=== PATIENT | male | born 1985 | race Caucasian/White ===

== ENCOUNTER 2017-08-23 14:51 | Emergency (ER) | payer OTHER ==
[2017-08-23 15:09] VITALS: BP 122/84; PULSE 105; TEMP 98.4; BMI 29.5
[2017-08-23] MEDS ORDERED: KETOROLAC TROMETHAMINE 60 MG/2 ML VIAL IM ONE (15:12)
--- NOTE | 2017-08-23 15:12 | PDOC ---
Rapid Medical Evaluation Chief Complaint: Back Pain Time Seen by Provider: 08/23/17 15:09 Medical Evaluation: Allergies Allergy/AdvReac Type Severity Reaction Status Date / Time propentofylline Allergy Unverified 08/23/17 15:05 [Propentofylline] venom-honey bee Allergy Unverified 08/23/17 15:05 [bee venom (honey bee)] Vital Signs Temp Pulse Resp BP Pulse Ox 98.4 F 105 H 18 122/84 100 08/23/17 15:06 08/23/17 15:06 08/23/17 15:06 08/23/17 15:06 08/23/17 15:06 08/23/17 15:11 The patient presents with a chief complaint of: [Lower back pain, history of herniated disc.] I have performed a brief in-person evaluation of this patient. Pertinent physical exam findings: vss, [Lower back pain, no point tenderness, no radiating pain] I have ordered the following: [Toradol 60 mg IM x 1] The patient will proceed to the ED for further evaluation.
[2017-08-23] MEDS ORDERED: CYCLOBENZAPRINE HCL 10 MG TABLET (FP) PO ONE (16:01)
[2017-08-23] MEDS ORDERED: CYCLOBENZAPRINE HCL 10 MG TABLET (FP) ONE (16:03)
[2017-08-23] MEDS ORDERED: KETOROLAC TROMETHAMINE 60 MG/2 ML VIAL ONE (16:03)
--- NOTE | 2017-08-23 16:06 | PDOC ---
History of Present Illness - General Chief Complaint: Back Pain Stated Complaint: LOWER BACK PAIN Time Seen by Provider: 08/23/17 15:09 History Source: Patient - History of Present Illness Occurred: reports: other Severity: reports: moderate Pain Location: reports: back Past History - Past Medical History Allergies/Adverse Reactions: Allergies Allergy/AdvReac Type Severity Reaction Status Date / Time propentofylline Allergy Unverified 08/23/17 15:05 [Propentofylline] venom-honey bee Allergy Unverified 08/23/17 15:05 [bee venom (honey bee)] Home Medications: Ambulatory Orders Cyclobenzaprine HCl [Flexeril 10 mg] 10 mg PO TID PRN #9 tablet 08/23/17 Ibuprofen [Motrin -] 600 mg PO QID #28 tablet 08/23/17 COPD: No Other medical history: back problems - Suicide/Smoking/Psychosocial Hx Smoking History: Current every day smoker Have you smoked in the past 12 months: Yes Number of Cigarettes Smoked Daily: 10 Information on smoking cessation initiated: Yes 'Breaking Loose' booklet given: 08/23/17 Hx Alcohol Use: No Drug/Substance Use Hx: No Substance Use Type: None Review of Systems - Review of Systems Constitutional: No: Chills, Fever ABD/GI: No: Nausea, Vomiting, Abdominal cramping Musculoskeletal: Yes: Back Pain. No: Muscle Weakness Neurological: No: Numbness, Tingling, Weakness *Physical Exam - Vital Signs Last Vital Signs Temp Pulse Resp BP Pulse Ox 98.4 F 105 H 18 122/84 100 08/23/17 15:06 08/23/17 15:06 08/23/17 15:06 08/23/17 15:06 08/23/17 15:06 - Physical Exam General Appearance: Yes: Appropriately Dressed. No: Apparent Distress HEENT: positive: Normal Voice Neck: positive: Supple Respiratory/Chest: negative: Respiratory Distress Gastrointestinal/Abdominal: positive: Soft. negative: Tender Musculoskeletal: negative: CVA Tenderness, Vertebral Tenderness Extremity: positive: Normal Inspection Integumentary: positive: Dry, Warm Neurologic: positive: Fully Oriented, Alert, Normal Mood/Affect, Motor Strength 5/5 Medical Decision Making - Medical Decision Making 08/23/17 16:02 31-year-old male, endorses history of herniated discs to lumbar spine with chronic lower back pain has been lost to follow-up for 2 years as per patient, here with worsening back pain 3 days. Pain located to mid lower back, sharp, non-radiating and worse with certain movements. No lower extremity weakness, bladder or bowel incontinence or saddle anesthesia. Taking Advil with no relief. Patient well-appearing and stable in ED and able to ambulate with no red flags, i.e Cauda Equina. Pain Control in ED. Anticipate Discharge with Spine Referral 08/23/17 16:05 *DC/Admit/Observation/Transfer Diagnosis at time of Disposition: Chronic back pain Qualifiers: Back pain location: low back pain Back pain laterality: unspecified Sciatica presence: without sciatica Qualified Code(s): M54.5 - Low back pain; G89.29 - Other chronic pain; G89.29 - Other chronic pain - Discharge Dispostion Disposition: HOME Condition at time of disposition: Good - Prescriptions Prescriptions: Cyclobenzaprine HCl [Flexeril 10 mg] 10 mg PO TID PRN #9 tablet PRN Reason: Back Pain Ibuprofen [Motrin -] 600 mg PO QID #28 tablet - Referrals Referrals: Henry Wolfe MD [Staff Physician] - - Patient Instructions Printed Discharge Instructions: Low Back Pain Additional Instructions: Take medications as prescribed and follow-up with Dr. Wolfe of neurology - Post Discharge Activity
== END 2017-08-23 16:34 | disposition home or self-care (01) ==
LOC: JERFT 14:51
PROC: 3E0233Z Introduction of Anti-inflammatory into Muscle, Percutaneous Approach (ICD-10-PCS; principal; 2017-08-23)
DX: M54.5 Low back pain (principal); G89.29 Other chronic pain; M51.26 Other intervertebral disc displacement, lumbar region
CPT/HCPCS: 96372; 99281-25

== ENCOUNTER 2017-12-15 12:34 | Emergency (ER) | payer OTHER ==
[2017-12-15 12:40] VITALS: BP 118/89; PULSE 89; TEMP 98.4; BMI 30.2
[2017-12-15] MEDS ORDERED: KETOROLAC TROMETHAMINE 60 MG/2 ML VIAL IM ONE (13:51)
[2017-12-15] MEDS ORDERED: KETOROLAC TROMETHAMINE 60 MG/2 ML VIAL ONE (13:55)
--- NOTE | 2017-12-15 13:58 | PDOC ---
History of Present Illness - General Chief Complaint: Back Pain Stated Complaint: BACK PAIN Time Seen by Provider: 12/15/17 12:59 - History of Present Illness Initial Comments: 32-year-old male with history of lower back pain and multiple herniations presents for exacerbation of lower back pain with right leg radiculopathy's pain is described as sharp exacerbated with motion relieved with rest with radiation down the posterior lateral aspect of the right leg to the level of the foot. He denies loss of bowel or bladder function. He did nothing for his pain so far. He is under the care of pain management and receives facet injections 12/15/17 13:52 Past History - Past Medical History Allergies/Adverse Reactions: Allergies Allergy/AdvReac Type Severity Reaction Status Date / Time propentofylline Allergy Unverified 12/15/17 12:35 [Propentofylline] venom-honey bee Allergy Unverified 12/15/17 12:35 [bee venom (honey bee)] Home Medications: Ambulatory Orders Cyclobenzaprine HCl [Flexeril 10 mg] 10 mg PO HS PRN #10 tablet 12/15/17 Methylprednisolone [Medrol Dose Juan] 4 mg PO ASDIR #21 tablet 12/15/17 COPD: No - Suicide/Smoking/Psychosocial Hx Smoking History: Current every day smoker Have you smoked in the past 12 months: Yes Number of Cigarettes Smoked Daily: 10 Information on smoking cessation initiated: No 'Breaking Loose' booklet given: 08/23/17 Hx Alcohol Use: No Drug/Substance Use Hx: No Substance Use Type: None Review of Systems - Review of Systems Musculoskeletal: Yes: Back Pain All Other Systems: Reviewed and Negative *Physical Exam - Vital Signs Last Vital Signs Temp Pulse Resp BP Pulse Ox 98.4 F 89 18 118/89 98 12/15/17 12:36 12/15/17 12:36 12/15/17 12:36 12/15/17 12:36 12/15/17 12:36 - Physical Exam Comments: Lumbar spine skin color and temperature are normal. There is decreased range of motion lumbar spine mild paralumbar musculature spasm 5 out of 5 strength in bilateral lower extremities. Patella and Achilles reflexes are 2+ and symmetric bilaterally. There is no clonus. Straight leg raise test is negative bilaterally. Thighs and calves are soft and nontender. There are no gross sensory motor deficits. Neurovascularly intact. 12/15/17 13:54 *DC/Admit/Observation/Transfer Diagnosis at time of Disposition: Chronic back pain - Discharge Dispostion Disposition: HOME Condition at time of disposition: Stable Decision to Admit order: No - Prescriptions Prescriptions: Cyclobenzaprine HCl [Flexeril 10 mg] 10 mg PO HS PRN #10 tablet PRN Reason: Muscle Spasms Methylprednisolone [Medrol Dose Juan] 4 mg PO ASDIR #21 tablet - Referrals Referrals: Rupal Young [Primary Care Provider] - - Patient Instructions Printed Discharge Instructions: Low Back Pain, DI for Low Back Pain Additional Instructions: Follow-up with orthopedic surgeon as we discussed in the next week return to the emergency room if symptoms worsen or go unresolved part of follow-up. I prescribed few steroid pack and a muscle relaxer do not take any other medicine besides Tylenol for the pain. - Post Discharge Activity
== END 2017-12-15 14:15 | disposition home or self-care (01) ==
LOC: JERFT 12:34
PROC: 3E0233Z Introduction of Anti-inflammatory into Muscle, Percutaneous Approach (ICD-10-PCS; principal; 2017-12-15)
DX: G89.29 Other chronic pain (principal)
CPT/HCPCS: 99281-25

== ENCOUNTER 2018-08-23 18:24 | Emergency (ER) | payer BC, OTHER ==
[2018-08-23 18:40] VITALS: BP 126/80; PULSE 90; TEMP 98.6; BMI 29.5
--- NOTE | 2018-08-23 19:55 | PDOC ---
History of Present Illness - General Chief Complaint: Back Pain Stated Complaint: LOW BACK PAIN Time Seen by Provider: 08/23/18 19:36 - History of Present Illness Initial Comments: 08/23/18 19:51 32-year-old male presents for evaluation of a painful area on his lumbosacral spine no fevers chills or night sweats Past History - Past Medical History Allergies/Adverse Reactions: Allergies Allergy/AdvReac Type Severity Reaction Status Date / Time propentofylline Allergy Verified 08/23/18 18:36 [Propentofylline] venom-honey bee Allergy Verified 08/23/18 18:36 [bee venom (honey bee)] Home Medications: Ambulatory Orders Bupropion HCl [Wellbutrin -] 100 mg PO BID 08/23/18 Cephalexin [Keflex] 500 mg PO QID #40 capsule 08/23/18 Clonazepam 1 mg PO ASDIR 08/23/18 Sulfamethoxazole/Trimethoprim [Bactrim Ds -] 1 tab PO BID #14 tablet 08/23/18 COPD: No - Suicide/Smoking/Psychosocial Hx Smoking History: Current every day smoker Have you smoked in the past 12 months: Yes Number of Cigarettes Smoked Daily: 10 Information on smoking cessation initiated: No 'Breaking Loose' booklet given: 08/23/17 Hx Alcohol Use: No Drug/Substance Use Hx: No Substance Use Type: None Review of Systems - Review of Systems Integumentary: Yes: Lesions, Lumps *Physical Exam - Vital Signs Last Vital Signs Temp Pulse Resp BP Pulse Ox 98.6 F 90 16 126/80 100 08/23/18 18:36 08/23/18 18:36 08/23/18 18:36 08/23/18 18:36 08/23/18 18:36 - Physical Exam Comments: 08/23/18 19:51 There is about a 1 cm circumferential area of induration erythema and warmth without fluctuance at the base of the lumbar spine skin Moderate Sedation - Procedure Monitoring Vital Signs: Procedure Monitoring Vital Signs Temperature 98.6 F 08/23/18 18:36 Pulse Rate 90 08/23/18 18:36 Respiratory Rate 16 08/23/18 18:36 Blood Pressure 126/80 08/23/18 18:36 O2 Sat by Pulse Oximetry (%) 100 08/23/18 18:36 Medical Decision Making - Medical Decision Making 08/23/18 19:52 This patient has a history of multiple pilonidal cyst I&D's. This particular one is not fluctuant and is not ready to be drained. I've advised the patient on warm compresses placed him on Bactrim and Keflex and will have her follow-up with general surgery. The area is scarred from prior I&D's this may need to be done formally in the operating room. *DC/Admit/Observation/Transfer Diagnosis at time of Disposition: History of pilonidal cyst - Discharge Dispostion Disposition: HOME Condition at time of disposition: Stable Decision to Admit order: No - Referrals Referrals: Angelica Sanchez MD [Primary Care Provider] - Lavon Breen MD [Staff Physician] - - Patient Instructions Printed Discharge Instructions: Pilonidal Cyst Additional Instructions: Return to the emergency room should symptoms worsen or go unresolved. Please follow-up with general surgery in 2-3 days for further evaluation and treatment options. Warm compresses multiple times a day will help with the cyst. Please take the antibiotics as directed. Tylenol and Motrin as directed for pain. - Post Discharge Activity
== END 2018-08-23 20:06 | disposition home or self-care (01) ==
LOC: JERFT 18:24
DX: L05.91 Pilonidal cyst without abscess (principal)
CPT/HCPCS: 99281-25

== ENCOUNTER 2019-09-18 16:52 | Emergency (ER) | payer BC ==
[2019-09-18] MEDS ORDERED: CYCLOBENZAPRINE HCL 10 MG TABLET (FP) PO ONE (17:16)
[2019-09-18] MEDS ORDERED: CYCLOBENZAPRINE HCL 10 MG TABLET (FP) ONE (17:21)
[2019-09-18 17:22] VITALS: BP 150/86; PULSE 90; TEMP 97.6; BMI 27.4
--- NOTE | 2019-09-18 17:40 | PDOC ---
Documentation entered by Kenia Goldberg SCRIBE, acting as scribe for Aime Batista MD. Aime Batista MD: This documentation has been prepared by the Ashlyn nelson Xhesika, SCRIBE, under my direction and personally reviewed by me in its entirety. I confirm that the documentation accurately reflects all work, treatment, procedures, and medical decision making performed by me. History of Present Illness - General Chief Complaint: Pain, Acute Stated Complaint: LOW BACK PAIN Time Seen by Provider: 09/18/19 16:54 History Source: Patient Exam Limitations: No Limitations - History of Present Illness Initial Comments: 09/18/19 17:24 The patient is a 33 year old male with a significant PMH of chronic lower back pain and multiple herniations who presents to the emergency department for his chronic back pain worsening the past couple of days. The patient states he has been controlling his chronic back pain with his own methods but the past 2 days the pain has been severe and the patient has not been able to sleep. Girlfriend at bedside states the patient has been having spasm shooting down his leg, and last night the patient lost his footing and sensation in his leg. Pt denies any weakness. Pt denies any recent injuries or trauma. Pt states he saw his PMD today, who prescribed him medication (naproxen) which he took 2hrs prior to his arrival. 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 The patient denies chest pain, shortness of breath, headache and dizziness. Denies fever, chills, cough, vomiting, diarrhea and constipation. Denies dysuria , frequency, urgency and hematuria. Allergies: NKDA Past History - Past Medical History Allergies/Adverse Reactions: Allergies Allergy/AdvReac Type Severity Reaction Status Date / Time propentofylline Allergy Verified 09/18/19 16:54 [Propentofylline] propofol Allergy Verified 09/18/19 16:54 venom-honey bee Allergy Verified 09/18/19 16:54 [bee venom (honey bee)] Home Medications: Ambulatory Orders Buprenorphine/Naloxone [Suboxone 8Mg/2Mg Sl Film -] 1 each SL DAILY 09/18/19 Cyclobenzaprine HCl [Flexeril 10 mg] 10 mg PO BID PRN #20 tablet 09/18/19 Naproxen [Naprosyn] 500 mg PO DAILY 09/18/19 traZODone HCL [Trazodone HCl] 50 mg PO ASDIR 09/18/19 COPD: No - Psycho Social/Smoking Cessation Hx Smoking History: Current every day smoker Have you smoked in the past 12 months: Yes Number of Cigarettes Smoked Daily: 10 Information on smoking cessation initiated: Yes 'Breaking Loose' booklet given: 08/23/17 Hx Alcohol Use: No Drug/Substance Use Hx: No Substance Use Type: None Review of Systems - Review of Systems Able to Perform ROS?: Yes Comments:: 09/18/19 17:24 GENERAL/CONSTITUTIONAL: No fever or chills. No weakness. HEAD, EYES, EARS, NOSE AND THROAT: No change in vision. No ear pain or discharge. No sore throat. CARDIOVASCULAR: No chest pain or shortness of breath. RESPIRATORY: No cough, wheezing, or hemoptysis. GASTROINTESTINAL: No nausea, vomiting, diarrhea or constipation. GENITOURINARY: No dysuria, frequency, or change in urination. MUSCULOSKELETAL: No joint or muscle swelling or pain. No neck pain. +lower back pain. SKIN: No rash NEUROLOGIC: No headache, vertigo, loss of consciousness, or change in strength/ sensation. ENDOCRINE: No increased thirst. No abnormal weight change. HEMATOLOGIC/LYMPHATIC: No anemia, easy bleeding, or history of blood clots. ALLERGIC/IMMUNOLOGIC: No hives or skin allergy. *Physical Exam - Vital Signs Last Vital Signs Temp Pulse Resp BP Pulse Ox 97.6 F 90 19 150/86 100 09/18/19 16:53 09/18/19 16:53 09/18/19 16:53 09/18/19 16:53 09/18/19 16:53 - Physical Exam 09/18/19 17:18 GENERAL: The patient is awake, alert, and fully oriented, Nontoxic - in no acute distress. HEAD: Normocephalic, atraumatic. NECK: Normal range of motion, supple ABDOMEN: Soft, nontender, No guarding, no rebound. No CVA tenderness BACK: No significant midline tenderness, mild tenderness to the Superior aspect of the right buttock, No significant erythema, induration, fluctuance appreciated EXTREMITIES: Normal range of motion, no edema. Dorsiflexion/ plantarflexion of bilateral ankles are symmetric, sensation intact On lower extremities bilaterally, antalgic gait Medical Decision Making - Medical Decision Making 09/18/19 17:20 33-year-old history of chronic back pain secondary to herniated disks presenting with to be exacerbation of his back pain associated with tingling sensation running down his right leg Without associated fever, chills, recent trauma or injury, focal weakness, Decrease sensation, urinary or bowel incontinence, saddle anesthesia. The patient had seen his primary care doctor earlier today had received a prescription with for an MRI as well as trazodone and Aleve which he took prior to arrival. He states he is not interested in taking trazodone We will give the patient Flexeril will also recommend that the patient follow- up with his orthopedic surgeon for further evaluation. There are no signs or symptoms suggestive of cord compression or paraspinal epidural abscess. Precautions were discussed I discussed the physical exam findings, ancillary test results and final diagnoses with the patient. I answered all of the patient's questions. The patient was satisfied with the care received and felt comfortable with the discharge plan and treatment plan. The patient will call their primary care physician within 24 hours to arrange follow-up and will return to the Emergency Department with any new, persistent or worsening symptoms. Discharge - Discharge Information Problems reviewed: Yes Clinical Impression/Diagnosis: Sciatica Qualifiers: Laterality: right Qualified Code(s): M54.31 - Sciatica, right side Condition: Improved Disposition: HOME - Admission No - Additional Discharge Information Prescriptions: Cyclobenzaprine HCl [Flexeril 10 mg] 10 mg PO BID PRN #20 tablet PRN Reason: Back Pain - Follow up/Referral Referrals: Regis Roy MD [Staff Physician] - - Patient Discharge Instructions Patient Printed Discharge Instructions: DI for Back Pain With Sciatica Additional Instructions: Return to the emergency department immediately with ANY new, persistent or worsening symptoms including numbness, tingling, weakness, fevers or any other concerns. Take medications as prescribed Do not take the Flexeril with the trazodone. Apply heat to your sore muscles. You MUST call and follow up with your doctor tomorrow for further evaluation of your symptoms. Your emergency department visit is not complete without a followup with your doctor for reevaluation.. Results were discussed with you. Please make sure your doctor reviews the results of your emergency evaluation. Print Language: SAMOAN - Post Discharge Activity Work/Back to School Note: Back to Work
== END 2019-09-18 17:42 | disposition home or self-care (01) ==
LOC: FER 16:52
DX: M54.31 Sciatica, right side (principal); Z88.8 Allergy status to other drugs, medicaments and biological substances; Z91.030 Bee allergy status; G89.29 Other chronic pain; M51.9 Unspecified thoracic, thoracolumbar and lumbosacral intervertebral disc disorder
CPT/HCPCS: 99283-25

== ENCOUNTER 2020-03-05 14:07 | Emergency (ER) | payer BC, OTHER ==
--- NOTE | 2020-03-05 14:21 | PDOC ---
Rapid Medical Evaluation Time Seen by Provider: 03/05/20 14:20 Medical Evaluation: Allergies Allergy/AdvReac Type Severity Reaction Status Date / Time propentofylline Allergy Verified 03/05/20 14:20 [Propentofylline] propofol Allergy Verified 03/05/20 14:20 venom-honey bee Allergy Verified 03/05/20 14:20 [bee venom (honey bee)] 03/05/20 14:21 I have performed a brief in-person evaluation of this patient. The patient presents with a chief complaint of: c/o ankle/knee pain s/p fall last week at work. H/o chronic back pain, opiate abuse Pertinent physical exam findings:NAD I have ordered the following:nothing The patient will proceed to the ED for further evaluation. Discharge Disposition - Diagnosis Ankle pain Qualifiers: Chronicity: acute Laterality: left Qualified Code(s): M25.572 - Pain in left ankle and joints of left foot - Referrals - Patient Instructions - Post Discharge Activity
[2020-03-05 14:23] VITALS: BP 116/67; PULSE 80; TEMP 98.3; BMI 26.2
[2020-03-05] MEDS ORDERED: KETOROLAC TROMETHAMINE 60 MG/2 ML VIAL IM ONE (15:15)
[2020-03-05] MEDS ORDERED: KETOROLAC TROMETHAMINE 30 MG/1 ML VIAL ONE (15:41)
--- NOTE | 2020-03-05 17:05 | PDOC ---
History of Present Illness - General Chief Complaint: Injury Stated Complaint: FALL Time Seen by Provider: 03/05/20 14:20 History Source: Patient Exam Limitations: No Limitations Past History - Travel History Traveled outside of the country in the last 30 days: No Close contact w/someone who was outside of country & ill: No - Medical History Allergies/Adverse Reactions: Allergies Allergy/AdvReac Type Severity Reaction Status Date / Time propentofylline Allergy Verified 03/05/20 14:20 [Propentofylline] propofol Allergy Verified 03/05/20 14:20 venom-honey bee Allergy Verified 03/05/20 14:20 [bee venom (honey bee)] Home Medications: Ambulatory Orders Buprenorphine/Naloxone [Suboxone 8Mg/2Mg Sl Film -] 1 each SL ASDIR 09/18/19 Cholecalciferol (Vitamin D3) [Vitamin D3 -] 50,000 unit PO WEEKLY 12/31/19 Clonazepam 1 mg PO BID 12/31/19 Omeprazole 40 mg PO DAILY 12/31/19 COPD: No HTN: No - Psycho-Social/Smoking History Smoking History: Current every day smoker Have you smoked in the past 12 months: Yes Number of Cigarettes Smoked Daily: 10 Information on smoking cessation initiated: No 'Breaking Loose' booklet given: 09/18/19 - Substance Abuse Hx (Audit-C & DAST Scrn) How often the patient has a drink containing alcohol: Never Score: In Men: 4 or > Positive; In Women: 3 or > Positive: 0 Screen Result (Pos requires Nsg. Audit-10AR): Negative In the last yr the pt used illegal drug/Rx for NonMed reason: No Score: Yes response is considered Positive: 0 Screen Result (Positive result requires Nsg. DAST-10): Negative Review of Systems - Review of Systems Able to Perform ROS?: Yes Comments:: 03/05/20 19:13 CONSTITUTIONAL: Absent: fever, chills, diaphoresis, generalized weakness, malaise, loss of appetite HEENT: Absent: rhinorrhea, nasal congestion, throat pain, throat swelling, difficulty swallowing, mouth swelling, ear pain, eye pain, visual Changes CARDIOVASCULAR: Absent: chest pain, loss of consciousness, palpitations, irregular heart rate, peripheral edema RESPIRATORY: Absent: cough, shortness of breath, dyspnea with exertion, orthopnea, wheezing, stridor, hemoptysis GASTROINTESTINAL: Absent: abdominal pain, abdominal distension, nausea, vomiting, diarrhea, constipation, melena, hematochezia GENITOURINARY: Absent: dysuria, frequency, urgency, hesitancy, hematuria, flank pain, genital pain MUSCULOSKELETAL: Present: Bilateral knee pain, left lower leg pain, left ankle pain with associated swelling. Absent: myalgia, SKIN: Absent: rash, itching, pallor HEMATOLOGIC/IMMUNOLOGIC: Absent: easy bleeding, easy bruising, lymphadenopathy, frequent infections ENDOCRINE: Absent: unexplained weight gain, unexplained weight loss, heat intolerance, cold intolerance NEUROLOGIC: Absent: headache, focal weakness or paresthesias, dizziness, unsteady gait, seizure, mental status changes, bladder or bowel incontinence PSYCHIATRIC: Absent: anxiety, depression, suicidal or homicidal ideation, hallucinations. Is the patient limited Egyptian proficient: No *Physical Exam - Vital Signs Last Vital Signs Temp Pulse Resp BP Pulse Ox 98.3 F 80 20 116/67 100 03/05/20 14:21 03/05/20 14:21 03/05/20 14:21 03/05/20 14:21 03/05/20 14:21 - Physical Exam 03/05/20 19:14 GENERAL: Well developed, well nourished. Awake and alert. No acute distress. HEENT: Normocephalic, atraumatic. PERRLA, EOMI. No conjunctival pallor. Sclera are non- icteric. Moist mucous membranes. NECK: Supple. Full ROM. MUSCULOSKELETAL Tenderness to palpation of the anterior aspect of the left and right knees bilaterally. Left worse than right. Negative anterior and posterior draw testing bilaterally. Negative varus valgus stressing. Negative Mireya's testing. Left ankle is tender to palpation of the lateral and medial malleoli with associated swelling. Strength intact bilaterally. No gait changes. Normal range of motion at all other joints. No bony deformities or tenderness. No CVA tenderness. EXTREMITIES: No cyanosis. No clubbing. No edema. No calf tenderness. SKIN: Warm and dry. Normal capillary refill. No rashes. No jaundice. NEUROLOGICAL: Alert, awake, appropriate. Cranial nerves 2-12 intact. No deficits to light touch and temperature in face, upper extremities and lower extremities. No motor deficits in the in face, upper extremities and lower extremities. Normoreflexic in the upper and lower extremities. Normal speech. Toes are down-going bilaterally. Gait is normal without ataxia. PSYCHIATRIC: Cooperative. Good eye contact. Appropriate mood and affect. ED Treatment Course - RADIOLOGY Radiology Studies Ordered: Category Date Time Status ANKLE & FOOT-LEFT* [RAD] Stat Radiology 03/05/20 15:14 Taken KNEE 3 POS-LEFT [RAD] Stat Radiology 03/05/20 15:14 Taken KNEE 3 POS-RIGHT [RAD] Stat Radiology 03/05/20 16:12 Taken LEG TIB/FIB-LEFT [RAD] Stat Radiology 03/05/20 15:14 Taken - Medications Given in the ED: ED Medications Discontinued Medications Generic Name Dose Route Start Last Admin Trade Name Freq PRN Reason Stop Dose Admin Ketorolac Tromethamine 30 mg 03/05/20 15:15 03/05/20 15:40 Toradol Injection - IM 03/05/20 15:16 30 mg ONCE ONE Administration Medical Decision Making - Medical Decision Making 03/05/20 19:17 Patient is a 34-year-old male with past medical history of chronic back pain, opioid use, presents to the ER with left leg pain for the past 4 days. He states he fell at work on , 02/29/2020. He states he was walking down a flight of steps when he missed the last 2 steps and rolled his left ankle falling on his left knee. Denies hitting his head or losing consciousness. He states that both his left ankle and knee were swollen after the accident. He reports that he still having pain so he came to the ER for evaluation. Denies numbness and tingling weakness the affected extremities. A/P: Left leg pain. See exam findings. X-rays show no acute fractures to the left lower extremity or right knee. Likely an ankle sprain with associated knee sprain versus meniscus injury. Will refer to orthopedics for further management. Explained to the patient he needs to call tomorrow to set up an appointment. Conservative management with ibuprofen, ice and rest given. Discharge home with strict return precautions. I discussed the physical exam findings, ancillary test results and final diagnoses with the patient. I answered all of the patient's questions. The patient was satisfied with the care received and felt comfortable with the discharge plan and treatment plan. The Patient agrees to follow up with the primary care physician/specialist within 24-72 hours. Return precautions were given. Discharge - Discharge Information Problems reviewed: Yes Clinical Impression/Diagnosis: Ankle pain Qualifiers: Chronicity: acute Laterality: left Qualified Code(s): M25.572 - Pain in left ankle and joints of left foot Knee pain Qualifiers: Chronicity: acute Laterality: left Qualified Code(s): M25.562 - Pain in left knee Condition: Stable Disposition: HOME - Admission No - Follow up/Referral Referrals: Eugene Rey MD [Staff Physician] - - Patient Discharge Instructions Patient Printed Discharge Instructions: DI for Ankle Sprain, DI for Knee Pain Additional Instructions: You were seen for your left leg pain after your fall today. Your x-rays did not show any evidence of fractures. You most likely sprained your ankle and knee. Please wear the supports to help with your pain. Take Motrin 600 mg every 6 hours to help with swelling. You may ice the areas. Please follow-up with orthopedics this week for further evaluation and treatment options. Return to the ER for worsening leg pain, numbness and tingling to the area if you have any changes in your symptoms - Post Discharge Activity Work/Back to School Note: Back to Work
== END 2020-03-05 17:17 | disposition home or self-care (01) ==
LOC: JERFT 14:07
PROC: 3E0233Z Introduction of Anti-inflammatory into Muscle, Percutaneous Approach (ICD-10-PCS; principal; 2020-03-05)
DX: M25.572 Pain in left ankle and joints of left foot (principal); M25.562 Pain in left knee
CPT/HCPCS: 73562-TC-LT-FY; 73562-TC-RT-FY; 73590-TC-LT-FY; 73610-TC-LT-FY; 73630-TC-LT; 99284-25